=== PATIENT | male | born 1995 | race Caucasian/White ===

== ENCOUNTER 2020-06-17 08:19 | Day surgery (SDC) | payer OTHER ==
[2020-06-17] MEDS ORDERED: cefTRIAXone 2 GM VIAL ONE (08:30)
[2020-06-17] MEDS ORDERED: LACTATED RINGERS 1,000 ML IV ONE ×2 (08:54→12:44)
--- NOTE | 2020-06-17 09:36 | ANESTHESIA ---
Pre-Anesthesia VS, & Labs - Diagnosis right clavicle fracture - Procedure ORIF right clavicle Vital Signs: Temp Pulse Resp BP Pulse Ox 36.7 C 68 16 132/71 H 100 06/17/20 08:43 06/17/20 08:43 06/17/20 08:43 06/17/20 08:43 06/17/20 08:43 Height: 5 ft 7 in Weight (kg): 79.83 kg Body Mass Index: 27.6 BMI Classification: Overweight - NPO >8 hours Home Medications and Allergies Home Medications: Ambulatory Orders Acetaminophen [Tylenol] 650 mg PO Q6H PRN 06/09/20 Acetaminophen [Tylenol] 650 mg PO Q6H PRN 06/09/20 Allergies/Adverse Reactions: Allergies Allergy/AdvReac Type Severity Reaction Status Date / Time No Known Drug Allergies Allergy Verified 06/09/20 15:16 Anes History & Medical History - Anesthetic History Anesthesia Complications: reports: No previous complications - Medical History Pulmonary: reports: None Gastrointestinal: reports: None Urinary: reports: None Musculoskeletal: reports: Other Endocrine/Autoimmune: reports: None Skin: reports: None History of Cancer?: No Exam General: Alert Dental: WNL Mouth Opening: Can't Open Mouth Neck Mobility: Normal Mallampati classification: I Respiratory: Lungs clear Cardiovascular: Regular rate Mental/Cognitive Status: Alert/Oriented X3 Cognitive Status: Within normal limits Plan Anesthesia Type: General Consent for Procedure(s) Verified and Reviewed: Yes Code Status: Attempt Resuscitation ASA classification: 1-Healthy patient Is this case an emergency?: No
[2020-06-17] MEDS ORDERED: BUPIVACAINE 0.5%-EPI 1:200000 PF 30 ML VIAL ONE (09:39)
[2020-06-17] MEDS ORDERED: HYDROmorphone 0.5 MG/0.5 ML SYRINGE IVP PRN (09:40)
[2020-06-17] MEDS ORDERED: ATROPINE ABBOJECT 1 MG/10 ML SYRINGE IVP PRN (09:40)
[2020-06-17] MEDS ORDERED: fentaNYL 100 MCG/2 ML VIAL IVP PRN (09:40)
[2020-06-17] MEDS ORDERED: METOCLOPRAMIDE 10 MG/2 ML VIAL IVP PRN (09:40)
[2020-06-17] MEDS ORDERED: NALOXONE 0.4 MG/ML VIAL IVP PRN (09:40)
[2020-06-17] MEDS ORDERED: ePHEDrine 50 MG/ML VIAL IVP PRN (09:40)
[2020-06-17] MEDS ORDERED: ONDANSETRON 4 MG/2 ML VIAL IVP PRN ×2 (09:40→12:54)
[2020-06-17] MEDS ORDERED: MORPHINE 2 MG/ML CARPUJECT IVP PRN (09:40)
[2020-06-17] MEDS ORDERED: PROPOFOL 200 MG/20 ML VIAL IVP ONE (09:46)
[2020-06-17] MEDS ORDERED: LIDOCAINE-MPF 2% 5 ML VIAL ONE (09:46)
[2020-06-17] MEDS ORDERED: fentaNYL 100 MCG/2 ML VIAL ONE ×3 (09:47→11:48)
[2020-06-17] MEDS ORDERED: LACTATED RINGERS 1,000 ML IV SCH (10:00)
[2020-06-17] MEDS ORDERED: BUPIVACAINE 0.5%-EPI 1:200000 PF 30 ML VIAL SUBQ ONE ×2 (10:35→12:33)
[2020-06-17] MEDS ORDERED: DEXAMETHASONE 4 MG/ML VIAL ONE (11:57)
[2020-06-17] MEDS ORDERED: ONDANSETRON 4 MG/2 ML VIAL ONE ×2 (11:57→13:20)
[2020-06-17] MEDS ORDERED: oxyCODONE 5 MG TABLET PO PRN (12:54)
--- NOTE | 2020-06-17 13:04 | OPERATIVE REPORT ---
Operative Report - Other Other Information/Narrative: Date of Surgery: 17 June 2020 Pre-Op Diagnosis: Displaced right clavicle fracture, comminuted Procedure: Open reduction internal fixation comminuted right clavicle shaft fracture Postop Diagnosis: Same Primary Surgeon: Karl Root Secondary Surgeon: None Complications: None Tourniquet Time: Not applicable EBL: 50 cc Implants: Synthes superior clavicle plate with six screws. 2.0 millimeter screw x1 Postoperative Protocol: Sling and passive range of motion until 6 weeks. Active range of motion after that. Strengthening at 3 months.. Indication For Surgery: 24-year-old male was skiing last week and fell onto his right shoulder sustaining the above injury. He was seen in the emergency room and diagnosed and placed into a sling. He did not have any neurovascular injury. We discussed his treatment options to include operative and nonoperat ed management. Operative risk management was favored for him to decrease the risk of symptomatic malunion and symptomatic nonunion. The risks, benefits, and alternatives were discussed. Risks include pain, bleeding, infection, damage to nearby structures, numbness, lack of symptom relief, implant complications, nonunion, need for further surgery, DVT, PE, stroke, and . Written consent was obtained. Procedure in Detail: The patient was met in the pre-operative hold area on the day of the procedure. The operative extremity was signed and questions were answered. The patient was brought to the operating room and a general anesthetic was administered. Supine position was used and all bony prominences were padded. Standard prepping and draping was performed. A time out confirmed patient identification, laterality, procedure, allergies, antibiotics, and images. A 10 cm incision was made anterior to the clavicle. Electrocautery was used to obtain hemostasis. The platysmal layer was incised with electrocautery. A traversing nerve was seen medially and preserved. I then tunneled superiorly to get on top of the clavicle. The fracture site was identified in the fascia was incised from the superior clavicle. The fascia was then freed as needed to allow for fragment identification and for future closure. The fractured ends were cleared of all hematoma. The intercalary fragment was reduced to the lateral fragment and clamped into place. There was a significant amount of interdigitation of all fracture fragments. A single lag screw was countersunk and placed superior to inferior fixing the intercalary piece to the lateral fragment. The medial fragment was then reduced to this and a superior plate was applied and clamped on each side with a crab claw. This held the reduction nicely. Two screws were then placed in the plate laterally and then I compressed through the plate medially. Additional screws were added to ensure there were three screws on each side. I took great care to not plunge inferiorly with the drill bit and the measuring device. The fracture compressed nicely and was very stable following fixation. Fluoroscopy was used to confirm fracture reduction and implant position. The wound was then irrigated and closed in a layered fashion. Full-thickness layers of the deltotrapezial fascial and muscle were closed on top of the plate. The platysma was then closed in a separate layer. The skin was closed with 2-0 Vicryl in the dermis and running Monocryl. 30 cc of quarter percent Marcaine plain were placed about the wound and a sterile dressing was applied. He was placed into a sling, awakened, and transferred to the recovery room.
[2020-06-17] MEDS ORDERED: ACETAMINOPHEN 1,000 MG/100 ML 100 ML IV ONE ×2 (13:09→13:59)
[2020-06-17] MEDS ORDERED: KETOROLAC 15 MG/ML VIAL ONE (13:10)
--- NOTE | 2020-06-17 13:11 | XRAY Report ---
PROCEDURE: OR C-Arm Procedure INDICATIONS: ORIF CLAVICLE TECHNIQUE: Intraoperative fluoroscopic evaluation during COMPARISON: None. FINDINGS: Normal alignment is established at the completion of the operative reduction of fracture malalignment and placement of a midclavicular fracture fixation plate establishing virtual anatomic alignment. IMPRESSION: Normal alignment established after ORIF. Reviewed by: Frank Connolly MD on 06/17/2020 1:10 PM [facility] Approved by: Frank Connolly MD on 06/17/2020 1:10 PM [facility] Station ID: [id number]
[2020-06-17] MEDS ORDERED: HYDROmorphone 0.5 MG/0.5 ML SYRINGE ONE ×2 (13:19→13:39)
--- NOTE | 2020-06-17 13:41 | ANESTHESIA POST OP EVALUATION ---
Anesthesia Post Eval - Post Anesthesia Eval Vitals: Last Vital Signs Temp 36.7 C 06/17/20 13:20 Pulse 83 06/17/20 13:35 Resp 14 06/17/20 13:35 BP 131/64 H 06/17/20 13:35 Pulse Ox 96 06/17/20 13:35 CV Function Including HR & BP: positive: Stable Pain Control: positive: Satisfactory Nausea & Vomiting: positive: Negative Mental Status: positive: Baseline Respiratory Status: Airway Patent Hydration Status: Satisfactory Anesthesia Complications: positive: None
[2020-06-17] MEDS ORDERED: KETOROLAC 30 MG/ML VIAL IVP PRN (13:59)
[2020-06-17 14:31] VITALS: BP 105/91
== END 2020-06-17 08:20 | disposition home or self-care (01) ==
LOC: SDS 08:19
PROVIDERS: ATTEND Orthopaedic Surgery
DX: S42.021A Displaced fracture of shaft of right clavicle, initial encounter for closed fracture (principal); Y93.23 Activity, snow (alpine) (downhill) skiing, snowboarding, sledding, tobogganing and snow tubing; Y92.838 Other recreation area as the place of occurrence of the external cause; Y99.8 Other external cause status